=== PATIENT | male | born 1990 | race African-American/Black ===

== ENCOUNTER 2021-06-14 00:29 | Emergency (ER) | payer OTHER ==
[~2021-06-14] VITALS: Ht 152.4 cm; Wt 82.0 kg
[2021-06-14 00:33] VITALS: BP 132/78
== END 2021-06-14 01:15 | disposition home or self-care (01) ==
LOC: ER 00:29
DX: S20.459A Superficial foreign body of unspecified back wall of thorax, initial encounter (principal); S21.139A Puncture wound without foreign body of unspecified front wall of thorax without penetration into thoracic cavity, initial encounter; F20.9 Schizophrenia, unspecified; Y35.833A Legal intervention involving a conducted energy device, suspect injured, initial encounter; Y93.89 Activity, other specified; Y92.488 Other paved roadways as the place of occurrence of the external cause
CPT/HCPCS: 99283